=== PATIENT | female | born 1990 | race Caucasian/White ===

== ENCOUNTER 2023-01-08 11:29 | Inpatient (IN) | payer OTHER ==
[~2023-01-08] VITALS: Ht 149.9 cm; Wt 55.8 kg
== END 2023-01-10 08:56 | disposition home or self-care (01) | DRG 833 ==
LOC: LDR 11:29 → OB/GYN 01-09 15:05
PROVIDERS: ADMIT Obstetrics & Gynecology Gynecology; ATTEND Obstetrics & Gynecology Gynecology
PROC: 4A1HXCZ Monitoring of Products of Conception, Cardiac Rate, External Approach (ICD-10-PCS; principal; 2023-01-08)
DX: O60.03 Preterm labor without delivery, third trimester (principal); Z3A.33 33 weeks gestation of pregnancy; Z20.822 Contact with and (suspected) exposure to COVID-19

== ENCOUNTER 2023-01-13 18:55 | Inpatient (IN) | payer OTHER ==
[~2023-01-13] VITALS: Ht 121.9 cm; Wt 55.8 kg
[2023-01-14] MEDS ORDERED: PRENATAL + DHA1 EAC1 PO (11:04)
[2023-01-14] MEDS ORDERED: NIFEDIPINE20 MG PO (11:06)
[2023-01-16] MEDS ORDERED: NIFEDIPINE ER60 MG PO (10:47)
== END 2023-01-16 11:10 | disposition home or self-care (01) | DRG 833 ==
LOC: OBS/DEL 18:55 → OB/GYN 01-14 08:26 → LDR 01-14 08:26 → OBS/DEL 01-14 08:26 → OB/GYN 01-15 09:16
PROVIDERS: ADMIT Obstetrics & Gynecology; ATTEND Obstetrics & Gynecology
PROC: 4A1HXCZ Monitoring of Products of Conception, Cardiac Rate, External Approach (ICD-10-PCS; principal; 2023-01-14)
DX: O60.03 Preterm labor without delivery, third trimester (principal); Z3A.36 36 weeks gestation of pregnancy; Z20.822 Contact with and (suspected) exposure to COVID-19

== ENCOUNTER 2023-01-21 10:19 | Outpatient (CLI) | payer OTHER ==
[~2023-01-21 10:19] MED LIST: NIFEDIPINE ER60 MG PO; NIFEDIPINE20 MG PO; PRENATAL + DHA1 EAC1 PO
== END 2023-01-21 11:44 | disposition home or self-care (01) ==
LOC: NST 10:19
PROVIDERS: ATTEND Obstetrics & Gynecology
DX: Z34.83 Encounter for supervision of other normal pregnancy, third trimester (principal)

== ENCOUNTER 2023-02-02 10:14 | Inpatient (IN) | payer OTHER ==
[~2023-02-02] VITALS: Ht 149.9 cm; Wt 58.1 kg
== END 2023-02-04 14:54 | disposition home or self-care (01) | DRG 807 ==
LOC: LDR 10:14 → OB/GYN 14:01
PROVIDERS: Obstetrics & Gynecology Gynecology; ADMIT Obstetrics & Gynecology; ATTEND Obstetrics & Gynecology
PROC: 10E0XZZ Delivery of Products of Conception, External Approach (ICD-10-PCS; principal; 2023-02-02)
PROC: 4A1HXCZ Monitoring of Products of Conception, Cardiac Rate, External Approach (ICD-10-PCS; 2023-02-02)
DX: O60.14X0 Preterm labor third trimester with preterm delivery third trimester, not applicable or unspecified (principal); Z37.0 Single live birth; Z3A.36 36 weeks gestation of pregnancy; Z20.822 Contact with and (suspected) exposure to COVID-19